=== PATIENT | male | born 1960 | race African-American/Black ===

== ENCOUNTER 2018-09-30 07:23 | Day surgery (SDC) | payer MEDICARE ==
[2018-09-29 14:18] VITALS: BMI 16.9
[2018-09-30] MEDS ORDERED: Sodium Chloride 0.9% 100 ML ONE (08:22)
[2018-09-30] MEDS ORDERED: Ketorolac Tromethamine 30 MG/ML VIAL ONE (08:22)
[2018-09-30] MEDS ORDERED: cefOXitin 2 GM VIAL ONE (08:22)
[2018-09-30 08:27] LABS: #Basophils 0.1 thou/uL (0.0-0.2); #Eosinphils 0.2 thou/uL (0.0-0.7); #Lymphocytes 3.4 thou/uL (1.20-3.40); #Monocytes 0.8 thou/uL (0.11-0.59); #Neutrophils 6.7 thou/uL (1.40-6.50); %Basophils 0.7 % (0.0-1.0); %Eosinophils 2.2 % (0.0-10.0); %Lymphocytes 30.2 % (21.0-51.0); %Monocytes 7.3 % (0.0-10.0); %Neutrophils 59.7 % (42.0-75.0); Hemoglobin 15.3 g/dL (14.0-18.0); Mean Corpuscular HGB CONC 32.7 g/dL (32.0-36.0); Mean Corpuscular Hemoglobin 29.8 pg (27.0-31.0); Mean Corpuscular Volume 91.4 fL (78.0-98.0); Mean Platelet Volume 6.6 fL (7.4-10.4); Platelet Count 249 thou/uL (130-400); RBC Distribution Width 12.6 % (11.5-14.5); Red Blood Cell (RBC) Count 5.12 mill/uL (4.70-6.10); White Blood Cell (WBC) Count 11.2 thou/uL (4.8-10.8)
[2018-09-30 08:53] LABS: Anion Gap 12 mmol/L (10-20); BUN (Urea Nitrogen) 12 mg/dL (8.4-25.7); Calc. Creatinine Clearance 67 mL/min (70-130); Calcium 9.7 mg/dL (7.8-10.44); Carbon Dioxide 24 mmol/L (22-29); Chloride 102 mmol/L (98-107); Estimated GFR-MDRD Greater than 90; Glucose 81 mg/dL (70-105); Potassium 4.3 mmol/L (3.5-5.1); Sodium 134 mmol/L (136-145)
[2018-09-30] MEDS ORDERED: Bupivacaine/Epinephrine 0.25% 30 ML VIAL ONE (09:20)
[2018-09-30] MEDS ORDERED: Lidocaine 2% Jelly 5 ML TUBE ONE (09:20)
[2018-09-30] MEDS ORDERED: Fentanyl 100 MCG/2 ML VIAL ONE ×2 (09:22)
--- NOTE | 2018-09-30 16:54 | EKG ---
Test Reason : PREOP Blood Pressure : / mmHG Vent. Rate : 060 BPM Atrial Rate : 060 BPM P-R Int : 176 ms QRS Dur : 080 ms QT Int : 416 ms P-R-T Axes : 084 078 073 degrees QTc Int : 416 ms Normal sinus rhythm Septal infarct , age undetermined Abnormal ECG No previous ECGs available Confirmed by DR. Minda GENTILE ([id number]) on 09/30/2018 4:53:41 PM Referred By: KELLY Confirmed By:DR. Minda GENTILE
--- NOTE | 2018-10-01 04:06 | OP ---
DATE OF PROCEDURE: 09/30/2018 PREOPERATIVE DIAGNOSIS: Prolapsing, but reducible internal hemorrhoid with discomfort and bleeding. POSTOPERATIVE DIAGNOSIS: Prolapsing, but reducible internal hemorrhoid with discomfort and bleeding. PROCEDURE PERFORMED: PPH stapled hemorrhoidectomy. SPECIAL EDUCATION INSTRUCTOR: Kem Rossi, medical student. ANESTHESIA: General endotracheal. INDICATIONS: The patient is a 57-year-old black male. He presents with markedly symptomatic prolapsing hemorrhoids and was taken to the operative room at this time for stapled hemorrhoidectomy. He has essentially no significant external hemorrhoidal burden. DESCRIPTION OF OPERATION: Informed consent was obtained. The patient was taken to the operating room, where general anesthesia was obtained with the patient in supine position. He was then rolled over into a prone ruby-knife position. Buttocks were taped apart, perianal area was trimmed of hair, prepped with Betadine and draped in sterile fashion. Local anesthetic was infiltrated using 0.25% Marcaine with epinephrine. The anus was gently dilated and the anal speculum was placed and secured with interrupted sutures of 2-0 Vicryl. The partial occluding obturator was utilized to place a pursestring suture of 2-0 Prolene several centimeters proximal to the dentate line. The PPH stapler was obtained and maximally opened, positioning the anvil above the pursestring suture. The suture was then secured around the post of the anvil. The tails of the suture were withdrawn through the lateral aspect of the stapler. With the suture under tension, the stapler was closed adjusting the stapler to within the anal canal. When the staple was appropriately positioned, it was fired, then removed. The resected specimen was inspected and found to be of appropriate thickness and width. The staple line was inspected and found to be essentially hemostatic. It was oversewn in a few areas with interrupted sutures of 3-0 Vicryl. The speculum was removed. Gelfoam was placed within the anal canal. Dry gauze dressing and mesh pants were placed externally. There were no complications. The patient tolerated the procedure well and was taken to recovery room in stable condition. Job ID: [id number]
== END 2018-09-30 12:23 | disposition home or self-care (01) ==
LOC: SDC 07:23
PROVIDERS: ATTEND Specialist
PROC: 06BY4ZC Excision of Hemorrhoidal Plexus, Percutaneous Endoscopic Approach (ICD-10-PCS; principal; 2018-09-30)
DX: K64.8 Other hemorrhoids (principal); F32.9 Major depressive disorder, single episode, unspecified; F17.210 Nicotine dependence, cigarettes, uncomplicated; Z79.899 Other long term (current) drug therapy; Z99.89 Dependence on other enabling machines and devices
CPT/HCPCS: 80048; 85025; 88304; 93005; 93010; J0131; J0694; J1885; J3010; J3490

== ENCOUNTER 2020-10-12 17:30 | Emergency (ER) | payer MEDICARE ==
[~2020-10-12 17:30] MED LIST: Iopamidol-370 76% 500 ML 1 ML ONE
[2020-10-12] MEDS ORDERED: Boostrix 0.5 ML (Tdap) VIAL ONE (17:36)
[2020-10-12 17:49] LABS: #Lymphocytes 2.6 thou/uL (1.20-3.40); #Monocytes 0.3 thou/uL (0.11-0.59); #Neutrophils 5.5 thou/uL (1.40-6.50); %Basophils 0.3 % (0.0-1.0); %Eosinophils 0.4 % (0.0-10.0); %Lymphocytes 30.7 % (21.0-51.0); %Monocytes 3.8 % (0.0-10.0); %Neutrophils 64.8 % (42.0-75.0); Mean Corpuscular HGB CONC 34.4 g/dL (32.0-36.0); Mean Corpuscular Hemoglobin 30.9 pg (27.0-31.0); Mean Corpuscular Volume 89.7 fL (78.0-98.0); Mean Platelet Volume 7.4 fL (7.4-10.4); Platelet Count 214 thou/uL (130-400); Red Blood Cell (RBC) Count 4.52 mill/uL (4.70-6.10); White Blood Cell (WBC) Count 8.4 thou/uL (4.8-10.8)
[2020-10-12 18:04] LABS: Prothrombin Time 12.9 sec (12.0-14.7)
[2020-10-12 18:05] LABS: ALT (SGPT) 13 U/L (8-55); AST (SGOT) 35 U/L (5-34); Albumin 4.2 g/dL (3.5-5.0); Alcohol 129 mg/dL (Less than 10); Alkaline Phosphatase 62 U/L (40-110); Anion Gap 16 mmol/L (10-20); BUN (Urea Nitrogen) 7 mg/dL (8.4-25.7); Bilirubin, Total 0.4 mg/dL (0.2-1.2); Calc. Creatinine Clearance 0 mL/min (70-130); Carbon Dioxide 18 mmol/L (22-29); Chloride 107 mmol/L (98-107); Glucose 84 mg/dL (70-105); Potassium 3.7 mmol/L (3.5-5.1); Protein, Total 7.2 g/dL (6.0-8.3); Sodium 137 mmol/L (136-145)
[2020-10-12] MEDS ORDERED: Morphine 4 MG/ML VIAL ONE (18:41)
[2020-10-12] MEDS ORDERED: Bacitracin 1 PK ONE (18:50)
== END 2020-10-12 19:59 | disposition home or self-care (01) ==
LOC: ERS 17:30
DX: S11.91XA Laceration without foreign body of unspecified part of neck, initial encounter (principal); I10 Essential (primary) hypertension; W26.9XXA Contact with unspecified sharp object(s), initial encounter
CPT/HCPCS: 70450; 70498; 71045; 74220; 80053; 80307; 83605; 85025; 85610; 85730; 86850; 86900; 86901; 90471; 90715; 96374; G0390; J2270; Q9967

== ENCOUNTER 2020-10-13 10:38 | Emergency (ER) | payer MEDICARE ==
[2020-10-13] MEDS ORDERED: Lidocaine 1% w/Epinephrine 1:100K 20 ML VIAL ONE (10:54)
[2020-10-13] MEDS ORDERED: Bacitracin 1 PK ONE (11:06)
[2020-10-13] MEDS ORDERED: Ketorolac Tromethamine 30 MG/ML VIAL ONE (11:35)
[2020-10-13] MEDS ORDERED: Amoxicillin/Potassium Clav 875 MG TAB ONE (11:35)
== END 2020-10-13 12:50 | disposition home or self-care (01) ==
LOC: ERS 10:38
DX: S11.91XA Laceration without foreign body of unspecified part of neck, initial encounter (principal); F17.210 Nicotine dependence, cigarettes, uncomplicated; I10 Essential (primary) hypertension; E78.00 Pure hypercholesterolemia, unspecified; W26.9XXA Contact with unspecified sharp object(s), initial encounter
CPT/HCPCS: 12002; 96372; J1885

== ENCOUNTER 2022-01-28 13:06 | Outpatient (CLI) | payer MEDICARE | END 2022-01-28 13:07 | disposition home or self-care (01) | LOC: RAD-FRANK 13:06 | PROVIDERS: ATTEND Family Medicine | DX: M79.622 Pain in left upper arm (principal) ==

== ENCOUNTER 2022-05-30 19:28 | Emergency (ER) | payer MEDICARE ==
[2022-05-30 19:56] LABS: #Basophils 0.1 thou/uL (0.0-0.2); #Eosinphils 0.1 thou/uL (0.0-0.7); #Lymphocytes 3.7 thou/uL (1.20-3.40); #Monocytes 0.5 thou/uL (0.11-0.59); #Neutrophils 3.5 thou/uL (1.40-6.50); %Basophils 1.5 % (0.0-1.0); %Eosinophils 1.6 % (0.0-10.0); %Lymphocytes 46.3 % (21.0-51.0); %Monocytes 6.7 % (0.0-10.0); Hemoglobin 14.9 g/dL (14.0-18.0); Mean Corpuscular HGB CONC 35.4 g/dL (32.0-36.0); Mean Corpuscular Hemoglobin 32.9 pg (27.0-31.0); Mean Platelet Volume 7.2 fL (7.4-10.4); Platelet Count 173 10x3/uL (130-400); RBC Distribution Width 12.6 % (11.5-14.5); Red Blood Cell (RBC) Count 4.51 mill/uL (4.70-6.10); White Blood Cell (WBC) Count 8.1 10x3/uL (4.8-10.8)
[2022-05-30 20:17] LABS: ALT (SGPT) 9 U/L (8-55); AST (SGOT) 23 U/L (5-34); Albumin 4.1 g/dL (3.4-4.8); Alkaline Phosphatase 50 U/L (40-110); Anion Gap 14 mmol/L (10-20); BUN (Urea Nitrogen) 9 mg/dL (8.4-25.7); Bilirubin, Total 0.2 mg/dL (0.2-1.2); Calc. Creatinine Clearance 0 mL/min (70-130); Calcium 8.9 mg/dL (7.8-10.44); Carbon Dioxide 19 mmol/L (23-31); Chloride 104 mmol/L (98-107); Estimated GFR 97; Globulin 2.6 g/dL (2.4-3.5); Glucose 88 mg/dL (80-115); Potassium 4.3 mmol/L (3.5-5.1); Protein, Total 6.7 g/dL (5.8-8.1); Sodium 133 mmol/L (136-145)
[2022-05-30] MEDS ORDERED: Aspirin Chewable 81 MG TAB ONE (20:20)
[2022-05-30] MEDS ORDERED: Ipratropium/Albuterol 3 ML NEB ONE (20:20)
[2022-05-30 20:54] LABS: SARS-CoV-2 NAA Rapid Test Not Detected (NotDetected)
== END 2022-05-30 21:01 | disposition home or self-care (01) ==
LOC: ERS 19:28
DX: R06.02 Shortness of breath (principal); F12.90 Cannabis use, unspecified, uncomplicated; Z20.822 Contact with and (suspected) exposure to COVID-19
CPT/HCPCS: 0240U; 71045; 80053; 83880; 84484; 85025; 93005; 94640; 99285; 36415; J7620